=== PATIENT | male | born 2000 | race African-American/Black ===

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

== ENCOUNTER 2020-07-16 14:06 | Emergency (ER) | payer SELFPAY ==
[~2020-07-16] VITALS: Ht 188 cm; Wt 72.0 kg
[~2020-07-16 14:06] MED LIST changes: -CETI10TA22 PO; +CETI10TA74 PO; +HYDR-3164 PO; -HYDR-971 PO
[2020-07-16 14:13] VITALS: BP 159/65
--- NOTE | 2020-07-16 14:14 | PHYS DOC ---
Past Medical History Past Medical History: Other Additional Past Medical Histor: TIB/FIB FRACTURE LEFT Past Surgical History: No Surgical History Smoking Status: Never Smoker Alcohol Use: None Drug Use: None General Adult EDM: Chief Complaint: SEXUALLY TRANSMITTED DISEASE HPI: HPI: Patient is a 20 year old [f__sex] who presents with [] Review of Systems: Review of Systems: Constitutional: Denies fever or chills Eyes: Denies redness or eye pain HENT: Denies nasal congestion or sore throat Respiratory: Denies cough or shortness of breath Cardiovascular: Denies chest pain or palpitations GI: Denies abdominal pain, nausea, or vomiting : Denies dysuria or hematuria Musculoskeletal: Denies back pain or joint pain Integument: Denies rash or skin lesions Neurologic: Denies headache, focal weakness or sensory changes Complete systems were reviewed and found to be within normal limits, except as documented in this note. Allergies: Allergies: Allergies Coded Allergies Type Severity Reaction Last Updated Verified No Known Drug Allergies 09/05/14 No Physical Exam: PE: Constitutional: Well developed, well nourished, no acute distress, non-toxic appearance HENT: Normocephalic, atraumatic Eyes: PERRL, EOMI, conjunctiva normal, no discharge Neck: Normal range of motion, no tenderness, supple Lungs & Thorax: No respiratory distress, equal chest rise and fall Abdomen: Soft, no tenderness Skin: Warm, dry, no erythema, no rash Back: No tenderness, no CVA tenderness Extremities: No tenderness, ROM intact, no edema Neurologic: Alert and oriented X 3, normal motor function, normal sensory function, no focal deficits noted Psychologic: Affect normal, judgment normal EKG: EKG: [] Radiology/Procedures: Radiology/Procedures: [] Course & Med Decision Making: Course & Med Decision Making Pertinent Lab studies reviewed. (See chart for details) Patient stable for discharge with outpatient follow-up with PCP. Discussed findings and plan with patient, who acknowledges understanding and agreement. Namita Disclaimer: Namita Disclaimer: This electronic medical record was generated, in whole or in part, using a voice recognition dictation system. Departure Departure Impression: Primary Impression: Concern about sexually transmitted disease in male without diagnosis Disposition: 01 DC HOME SELF CARE/HOMELESS Condition: STABLE Referrals: UNKNOWN PCP NAME (PCP) Patient Instructions: Sexually Transmitted Disease, [id number] YEMI GARCIAb 15, 2021 14:14
[2020-07-16] MEDS ORDERED: cefTRIAXone IM 500 MG VIAL. IM ONE (14:15)
[2020-07-16] MEDS ORDERED: AZITHROMYCIN 250 MG TABLET. PO ONE (14:15)
[2020-07-16 14:46] LABS: BILIRUBIN,URINE NEGATIVE (NEG); CLARITY,URINE CLEAR; COLOR,URINE YELLOW; NITRITE,URINE NEGATIVE (NEG); PROTEIN,URINE NEGATIVE (NEG-TRACE); UROBILINOGEN,URINE 0.2 mg/dL (0.2 mg/dL)
[2020-07-16 15:02] LABS: AMORPHOUS SEDIMENT,UR PRESENT /HPF; RBC,URINE RARE /HPF (0-2)
[2020-07-16 15:04] LABS: BACTERIA,URINE 0 /HPF (0-FEW)
== END 2020-07-16 15:52 | disposition home or self-care (01) ==
LOC: ER 14:06
DX: Z20.2 Contact with and (suspected) exposure to infections with a predominantly sexual mode of transmission (principal)
CPT/HCPCS: 81001; 87491; 87591; 96372; 99283; J0696